=== PATIENT | male | born 1945 | race Caucasian/White ===

== ENCOUNTER 2017-01-03 10:06 | Day surgery (SDC) | payer OTHER ==
[2017-01-03] VITALS (7 sets, daily range): BP systolic 117–147; BP diastolic 70–92
[~2017-01-03] VITALS: Ht 188 cm; Wt 85.3 kg
[~2017-01-03 10:06] MED LIST: NKM
[2017-01-03] MEDS ORDERED: Phenylephrine 2.5% Op Soln ONE (11:03)
[2017-01-03] MEDS ORDERED: Cyclopentolate 1% Opth Sol ONE (11:03)
[2017-01-03] MEDS: Phenylephrine 2.5% Op Soln LEFT EYE SCH ×3 (11:04→11:24)
[2017-01-03] MEDS: Cyclopentolate 1% Opth Sol LEFT EYE SCH ×3 (11:04→11:24)
[2017-01-03] MEDS ORDERED: Timolol 0.5% Op Soln 2.5ml ONE (11:08)
[2017-01-03] MEDS ORDERED: Tetracaine 0.5% Opth Soln ONE (11:08)
[2017-01-03] MEDS ORDERED: Kenalog-40 1ml Vial ONE (11:08)
[2017-01-03] MEDS ORDERED: BSS 500ml btl ONE (11:08)
[2017-01-03] MEDS ORDERED: Maxitrol Opth Oint 3.5gm ONE (11:08)
[2017-01-03] MEDS ORDERED: Bupivacaine 0.75% 30ml vial INJ ONE (11:09)
[2017-01-03] MEDS ORDERED: Goniosol 2.5% Opth Soln - 15ml ONE (11:09)
[2017-01-03] MEDS ORDERED: BSS 15ml BTL ONE (11:09)
[2017-01-03] MEDS ORDERED: Kenalog-10 5ml Inj ONE (11:09)
[2017-01-03] MEDS ORDERED: Lidocaine 2% MPF 5ml Vial INJ ONE (11:09)
[2017-01-03] MEDS ORDERED: EPINEPHrine 1mg/1ml Amp ONE (11:09)
[2017-01-03] MEDS ORDERED: Povidone-Iodine 5% opth solution ONE (11:09)
[2017-01-03 11:30] LABS: BASOPHILS % (AUTO) 1.1 % (0.0-2.0); LYMPHOCYTES % (AUTO) 28.7 % (20.0-45.0); MEAN CORPUSCULAR HEMOGLOBIN 31.4 PG (27.0-31.0); MEAN CORPUSCULAR HGB CONC 32.8 G/DL (32.0-36.0); MEAN CORPUSCULAR VOLUME 96 FL (80-99); MEAN PLATELET VOLUME 6.8 FL (6.5-10.1); MONOCYTES % (AUTO) 9.2 % (1.0-10.0); PLATELET COUNT 215 K/UL (150-450); WHITE BLOOD COUNT 4.8 K/UL (4.8-10.8)
[2017-01-03 11:37] LABS: ANION GAP 11 (5-15); CALCIUM 9.6 mg/dL (8.6-10.2); CARBON DIOXIDE 26 mEQ/L (20-30); CHLORIDE 103 mEQ/L (98-107); CREATININE 0.9 mg/dL (0.7-1.2); GLOMERULAR FILTRATION RATE > 60 mL/min (>60); HEMOLYSIS 8; POTASSIUM 4.6 mEQ/L (3.4-4.9); SODIUM 140 mEQ/L (135-145)
--- NOTE | 2017-01-03 11:48 | Pre-Procedure Note/Attestation ---
Pre-Procedure Note/Attestation Complete Prior to Procedure Planned Procedure: left Procedure Narrative: PPV/Laser/ Gas Indications for Procedure Pre-Operative Diagnosis: Retinal Detachment Attestation I attest that I discussed the nature of the procedure; its benefits; risks and complications; and alternatives (and the risks and benefits of such alternatives ), prior to the procedure, with the patient (or the patient's legal sales representative [place] [employer]). I attest that, if there was a reasonable possibility of needing a blood transfusion, the patient (or the patient's legal sales representative [place]) was given the [facility] standardized written summary, pursuant to the Phillip Devorah Blood Safety Act ([place] Health and Safety Code # 1645, as amended). I attest that I re-evaluated the patient just prior to the surgery and that there has been no change in the patient's H&P, except as documented below: LATANYA FAROOQ M.D. Jan 03, 2017 11:48
[2017-01-03] MEDS ORDERED: Midazolam 2mg/2ml Inj ONE (12:30)
[2017-01-03] MEDS ORDERED: fentaNYL 100 mcg/2 mL IV ONE (12:30)
[2017-01-03] MEDS ORDERED: LR 1000ml ONE (12:30)
[2017-01-03] MEDS ORDERED: Lidocaine 1% MPF 10mg/ml 5ml ONE (12:30)
[2017-01-03] MEDS ORDERED: Propofol 10mg/ml 20ml IV ONE (12:30)
--- NOTE | 2017-01-03 13:48 | Operative Note - PDOC ---
Operative Note Operative Note Chief Complaint: RD Pre-op Diagnosis: Retinal Detachment Procedure: PPV/EL/Gas Post-op Diagnosis: RD Post-op Diagnosis: same as pre-op Surgeon: Dorota Farooq Anesthesia: local, MAC Specimen: none Complications: none Condition: stable Estimated Blood Loss: none Drains: none Implant(s) used?: No LATANYA FAROOQ M.D. Jan 03, 2017 13:48
--- NOTE | 2017-01-03 13:49 | Immediate Post-Op Evaluation ---
Immediate Post-Op Evalulation Immediate Post-Op Evalulation Procedure: vitrectomy Date of Evaluation: Jan 03, 2017 Time of Evaluation: 13:45 IV Fluids: 500 Blood Pressure Systolic: 120 Blood Pressure Diastolic: 80 Pulse Rate: 67 Respiratory Rate: 14 O2 Sat by Pulse Oximetry: 100 Temperature (Fahrenheit): 97.0 Nausea: No Vomiting: No Complications none Patient Status: awake, reacts Hydration Status: adequate Drug: none LIRIPHOEBE RALPH PROJECT MANAGEMENT SPECIALIST Jan 03, 2017 13:49
--- NOTE | 2017-01-03 13:51 | Anethesia Preoperative Eval ---
Anesthesia Pre-op PMH/ROS General Date of Evaluation: Jan 03, 2017 Time of Evaluation: 13:00 Anesthesiologist: lali ASA Score: ASA 2 Mallampati Score Class I : Soft palate, uvula, fauces, pillars visible Class II: Soft palate, uvula, fauces visible Class III: Soft palate, base of uvula visible Class IV: Only hard plate visible Mallampati Classification: Class II Surgeon: flash Diagnosis: retinal detachment Surgical Procedure: vitrectomy Anesthesia History: none Social History: drug use Family History: no anesthesia problems Allergies: Coded Allergies: No Known Allergies (Unverified , 01/02/17) Medications: see eMAR Past Medical History Cardiovascular: Denies: HTN, CAD, CO, valve dz, arrhythmia, other Pulmonary: Denies: asthma, COPD, LORENA, other Neurologic/Psychiatric: Denies: dementia, CVA, depression/anxiety, TIA, other HEENT: Reports: other - retinal detachement Hematology/Immune: Denies: anemia, DVT, bleeding disorder, other Musculoskeletal/Integumentary: Denies: OA, RA, DJD, DDD, edema, other PSxH Narrative: eye surgery Anesthesia Pre-op Phys. Exam Physician Exam Last Vital Signs Date Time Temp Pulse Resp B/P (MAP) Pulse Ox O2 Delivery O2 Flow Rate FiO2 01/03/17 10:39 97.6 56 20 117/70 100 Room Air Constitutional: NAD Neurologic: CN 2-12 intact Cardiovascular: RRR Respiratory: CTA Gastrointestinal: S/NT/ND Airway Exam Mallampati Score: Class II ROM: full Dentures: no upper, no lower Anesthesia Pre-op A/P Labs Hematology Test 01/03/17 11:05 White Blood Count 4.8 K/UL (4.8-10.8) Red Blood Count 4.80 M/UL (4.70-6.10) Hemoglobin 15.1 G/DL (14.2-18.0) Hematocrit 45.9 % (42.0-52.0) Mean Corpuscular Volume 96 FL (80-99) Mean Corpuscular Hemoglobin 31.4 PG (27.0-31.0) H Mean Corpuscular Hemoglobin Concent 32.8 G/DL (32.0-36.0) Red Cell Distribution Width 13.0 % (11.6-14.8) Platelet Count 215 K/UL (150-450) Mean Platelet Volume 6.8 FL (6.5-10.1) Neutrophils (%) (Auto) 58.0 % (45.0-75.0) Lymphocytes (%) (Auto) 28.7 % (20.0-45.0) Monocytes (%) (Auto) 9.2 % (1.0-10.0) Eosinophils (%) (Auto) 3.0 % (0.0-3.0) Basophils (%) (Auto) 1.1 % (0.0-2.0) Chemistry Test 01/03/17 11:05 Sodium Level 140 mEQ/L (135-145) Potassium Level 4.6 mEQ/L (3.4-4.9) Chloride Level 103 mEQ/L (98-107) Carbon Dioxide Level 26 mEQ/L (20-30) Anion Gap 11 (5-15) Blood Urea Nitrogen 14 mg/dL (7-23) Creatinine 0.9 mg/dL (0.7-1.2) Estimat Glomerular Filtration Rate > 60 mL/min (>60) Glucose Level 106 mg/dL (74-106) Calcium Level 9.6 mg/dL (8.6-10.2) Studies Pre-op Studies: EKG - sr Risk Assessment & Plan Plan: mac Pre-Antibiotics Drug: none PHOEBE ESQUIVEL CRNA Jan 03, 2017 13:51
--- NOTE | 2017-01-03 13:52 | 48 Hour Post Anesthesia Eval ---
Post Anesthesia Evaluation Procedure: vitrectomy Date of Evaluation: Jan 03, 2017 Time of Evaluation: 13:52 Blood Pressure Systolic: 144 0: 80 Pulse Rate: 62 Respiratory Rate: 14 O2 Sat by Pulse Oximetry: 96 Airway: patent Nausea: No Vomiting: No Hydration Status: adequate Cardiopulmonary Status: stable Mental Status/LOC: patient returned to baseline Follow-up Care/Observations: per surgeon Post-Anesthesia Complications: none Follow-up care needed: N/A PHOEBE ESQUIVEL CRNA Jan 03, 2017 13:52
--- NOTE | 2017-01-04 15:30 | Operative Note - Dictated ---
DATE OF OPERATION: 01/03/2017 SURGEON: Caitlin Ruff M.D. Procedures: Pars plana vitrectomy, endolaser photocoagulation, and 00:17, left eye. INDICATIONS FOR SURGERY: Retinal detachment, left eye. PREOPERATIVE DIAGNOSIS: Retinal detachment, left eye. POSTOPERATIVE DIAGNOSIS: Retinal detachment, left eye. ANESTHESIA: Peribulbar and retrobulbar with MAC. COMPLICATIONS: None. Operative Procedure: Following the detailed discussion of risks, benefits, and alternatives, informed consent was obtained. The patient was taken to the operating room suite where intravenous sedation was administered followed by administration of 8 mL of 50:50 mixture of lidocaine 2% and Marcaine 0.75% into the peribulbar and retrobulbar spaces of the left eye. The surgical field was prepped and draped in the usual sterile fashion. A 23-gauge pars plana infusion cannula was inserted 3.5 mm behind the limbus in the infratemporal quadrant. It was inspected and switched on. A 23-gauge cannula was inserted 3.5 mm behind the limbus in each of the supratemporal and supranasal quadrants. The eye was entered with light probe and vitrectomy probe. The residual gas from previous pneumatic retinopexy was removed. Vitrectomy was performed uneventfully. Retina was inspected. The retinal breaks were present in the supratemporal and temporal quadrants with retinal detachment extending temporally to inferiorly. The retinal breaks were marked and fluid air exchange was performed with simultaneous drainage of subretinal fluid reattaching the retina. Endolaser photocoagulation was applied to the areas of retinal breaks and also possibly to the vitreous space. This was performed uneventfully. Retina was inspected. No further breaks or detachments were identified. C3F8 gas 12% was infused and this was followed by removal of sclerotomy cannulas. The sclerotomies were inspected and were found to be sealed. Sub-Tenon injection of Kenalog and subconjunctival vancomycin was administrated followed by topical timolol. A patch and a shield were put in place. At the end of the procedure, intraocular pressure was satisfactory and retina was attached. COMMENTS: The patient made excellent recovery from surgery and will be evaluated in 1 day. Importance of compliance with evaluation, medication, and positioning reemphasized. Caitlin Ruff M.D. DR: ARTURO JOB#: [id number] CC:
== END 2017-01-03 15:15 | disposition home or self-care (01) ==
LOC: SUR 10:06
DX: H33.22 Serous retinal detachment, left eye (principal)
CPT/HCPCS: 36415; 80048; 85025; 93005; 94003; 94150; J2250; J2405